=== PATIENT | female | born 1970 | race Two or more races ===

== ENCOUNTER 2016-08-04 10:50 | Emergency (ER) | payer MEDICAID ==
[~2016-08-04] VITALS: Ht 152.4 cm; Wt 54.4 kg
[~2016-08-04 10:50] MED LIST: LEVO750T21 PO; OMEP20CA10 PO; ONDA4TAB5 PO
[2016-08-04 11:05] VITALS: BP 114/68
[2016-08-04 11:39] LABS: KETONES,URINE Negative (NEGATIVE); LEUKOCYTE ESTERASE ,URINE Trace (NEGATIVE)
[2016-08-04 11:41] LABS: ADD UA MICROSCOPIC YES
[2016-08-04 11:42] LABS: PREGNANCY TEST URINE QUAL NEGATIVE (NEGATIVE)
[2016-08-04 11:52] LABS: ADD URINE CULTURE NO; WBC,URINE 0-2 /HPF (0-3)
== END 2016-08-04 12:01 | disposition home or self-care (01) ==
LOC: ER 10:54
DX: N39.0 Urinary tract infection, site not specified (principal)
CPT/HCPCS: 81001; 84703; 87086; 99284; A4606; Z7610; 81000-TC

== ENCOUNTER 2017-02-22 08:56 | Emergency (ER) | payer MEDICAID ==
[~2017-02-22] VITALS: Ht 149.9 cm; Wt 47.6 kg
--- NOTE | 2017-02-22 10:00 | NUR ---
EYE ASSESSMENT- R EYE 20/20, L EYE- 20/15
[2017-02-22 10:19] LABS: BASOPHILS # (AUTO) 0.1 /CMM (0.0-0.2); BASOPHILS % (AUTO) 1.2 % (0.0-2.0); EOSINOPHILS # (AUTO) 0.1 /CMM (0.0-0.7); HEMATOCRIT 42 % (33-45); HEMOGLOBIN 14.1 g/dL (11.5-14.8); LYMPHOCYTES # (AUTO) 1.8 /CMM (0.8-4.8); LYMPHOCYTES % (AUTO) 30.4 % (20.0-44.0); MEAN CORPUSCULAR HEMOGLOBIN 31 PG (26.0-33.0); MEAN CORPUSCULAR HGB CONC 34 g/dl (31.0-36.0); MEAN CORPUSCULAR VOLUME 90 fL (82-100); MONOCYTES # (AUTO) 0.3 /CMM (0.1-1.30); MONOCYTES % (AUTO) 5.3 % (2.0-12.0); NEUTROPHILS # (AUTO) 3.8 /CMM (1.8-8.9); NEUTROPHILS % (AUTO) 61.1 % (43.0-81.0); PLATELET COUNT (AUTO) 240 /CMM (150-450); RDW COEFFICIENT OF VARIATION 12.1 (11.5-15.0); RED BLOOD CELL COUNT(AUTO) 4.62 MIL/uL (4.0-5.2); WHITE BLOOD COUNT (AUTO) 6.1 K/uL (4.3-11.0)
--- NOTE | 2017-02-22 10:19 | NUR ---
PT REFUSED MEDS. MD AWARE. PER MD CONTINUE WITH JUST BLOOD DRAW, NO IV.
[2017-02-22 10:28] LABS: CALCIUM, SERUM 9.1 mg/dL (8.5-10.1); CREATININE 0.6 mg/dL (0.6-1.3); POTASSIUM 4.1 mmol/L (3.5-5.1)
[2017-02-22 10:33] LABS: INR 0.96 (0.87-1.13)
[2017-02-22 10:34] LABS: ALBUMIN 4.1 g/dL (3.4-5.0); BILIRUBIN,TOTAL 0.5 mg/dL (0.2-1.0); TOTAL PROTEIN, SERUM 7.9 g/dL (6.4-8.2)
--- NOTE | 2017-02-22 13:01 | NUR ---
Patient discharged to home in stable condition. Written and verbal after care instructions given. Patient verbalizes understanding of instruction.
--- NOTE | 2017-02-22 13:01 | NUR ---
Note undone in EDM - 02/22/17 at 1302 by ELISEOON IV removed. Catheter intact and site benign. Pressure and 4x4 applied to site. No bleeding noted.
[2017-02-22 13:03] VITALS: BP 122/78
== END 2017-02-22 13:03 | disposition home or self-care (01) ==
LOC: ER 08:59
DX: R51 Headache (principal); H11.31 Conjunctival hemorrhage, right eye; Z90.710 Acquired absence of both cervix and uterus; Z90.89 Acquired absence of other organs
CPT/HCPCS: 36415; 70450-TC; 80053-TC; 85025-TC; 85610-TC; 85652-TC; 85730-TC; A4606; J2270; J2405; Z7610

== ENCOUNTER 2018-02-09 07:29 | Emergency (ER) | payer MEDICAID ==
[~2018-02-09] VITALS: Ht 149.9 cm; Wt 47.6 kg
--- NOTE | 2018-02-09 07:30 | NUR ---
PRESENTS TO ER C/O DYSURIA AND HEMATURIA SINCE LAST NIGHT. PATIENT IS A/OX 4, BREATHING EVEN AND UNLABORED. NO SOB, NAD, VITALS STABLE. SAFETY AND COMFORT MEASURES IN PLACE. AWAITING MD ORDERS.
--- NOTE | 2018-02-09 07:40 | NUR ---
URINE OBTAINED AND SENT TO LAB.
[2018-02-09 08:01] LABS: APPEARANCE,URINE CLOUDY (CLEAR); BILIRUBIN,URINE NEGATIVE (NEGATIVE); BLOOD, URINE 3+ Ery/uL (NEGATIVE); COLOR,URINE YELLOW (YELLOW); KETONES,URINE NEGATIVE (NEGATIVE); LEUKOCYTE ESTERASE ,URINE 2+ (NEGATIVE); NITRITE, URINE NEGATIVE (NEGATIVE); PROTEIN,URINE TRACE mg/dl (NEGATIVE); UGLUCOSE NEGATIVE (NEGATIVE); UROBILINOGEN,URINE 0.2 EU/dL (0.2)
[2018-02-09 08:09] LABS: BACTERIA,URINE Few /HPF (None Seen); SQUAMOUS EPITHELIAL CELL,UR Few /HPF (None Seen)
[2018-02-09 08:10] LABS: RBC,URINE 51-80 /HPF (0-2); WBC,URINE 51-80 /HPF (0-3)
[2018-02-09 08:20] VITALS: BP 124/76
--- NOTE | 2018-02-09 08:21 | NUR ---
Patient discharged to home in stable condition. Written and verbal after care instructions given. Patient verbalizes understanding of instruction.
== END 2018-02-09 08:21 | disposition home or self-care (01) ==
LOC: ER 07:31
DX: N39.0 Urinary tract infection, site not specified (principal); Z90.710 Acquired absence of both cervix and uterus; Z87.440 Personal history of urinary (tract) infections; Z90.89 Acquired absence of other organs
CPT/HCPCS: 81001; 84703; 87077; 87086; 87186; 99284; A4606; Z7610; 81000-TC

== ENCOUNTER 2018-10-16 11:00 | Emergency (ER) ==
[~2018-10-16] VITALS: Ht 149.9 cm; Wt 54.9 kg
[~2018-10-16 11:00] MED LIST changes: -OMEP20CA10 PO; +OMEP20CA11 PO
[2018-10-16 11:05] VITALS: BP 94/61
[2018-10-16] MEDS ORDERED: FLUORESCEIN SODIUM OPHTH 1 EA STRIP ONE (11:18)
[2018-10-16] MEDS ORDERED: TETRACAINE HCL/PF 0.5% UD 2 ML BOTTLE ONE (11:18)
[2018-10-16] MEDS ORDERED: FLUORESCEIN SODIUM OPHTH 1 EA STRIP OP ONE (11:30)
[2018-10-16] MEDS ORDERED: TETRACAINE HCL/PF 0.5% UD 2 ML BOTTLE RIGHTEYE ONE (11:30)
== END 2018-10-16 11:48 | disposition home or self-care (01) ==
LOC: ER 11:00
DX: H11.31 Conjunctival hemorrhage, right eye (principal); Z90.710 Acquired absence of both cervix and uterus; Z90.89 Acquired absence of other organs; Z60.2 Problems related to living alone; Z79.899 Other long term (current) drug therapy; Z87.440 Personal history of urinary (tract) infections

== ENCOUNTER 2018-12-18 12:34 | Emergency (ER) | payer MEDICAID, OTHER ==
[~2018-12-18] VITALS: Ht 152.4 cm; Wt 55.8 kg
[2018-12-18 12:52] VITALS: BP 114/70
== END 2018-12-18 15:44 | disposition home or self-care (01) ==
LOC: ER 12:35
DX: H11.31 Conjunctival hemorrhage, right eye (principal); R51 Headache; Z90.710 Acquired absence of both cervix and uterus; Z87.440 Personal history of urinary (tract) infections; Z90.89 Acquired absence of other organs; Z60.2 Problems related to living alone
CPT/HCPCS: 70450-TC

== ENCOUNTER 2019-06-29 20:04 | Emergency (ER) | payer MEDICAID, OTHER ==
[~2019-06-29] VITALS: Ht 149.9 cm; Wt 54.4 kg
[~2019-06-29 20:04] MED LIST changes: -OMEP20CA11 PO; +OMEP20CA15 PO
[2019-06-29 20:24] VITALS: BP 101/51
[2019-06-29] MEDS ORDERED: IBUPROFEN 400 MG TABLET PO STA (22:59)
[2019-06-29] MEDS ORDERED: BENZONATATE 100 MG CAPSULE PO STA (22:59)
[2019-06-29] MEDS ORDERED: GUAIFENESIN LA 600 MG TABLET.SA PO STA (22:59)
[2019-06-29] MEDS ORDERED: GUAIFENESIN LA 600 MG TABLET.SA PO ONE (23:19)
[2019-06-29] MEDS ORDERED: IBUPROFEN 400 MG TABLET ONE (23:19)
[2019-06-29] MEDS ORDERED: BENZONATATE 100 MG CAPSULE PO ONE (23:24)
== END 2019-06-30 01:17 | disposition home or self-care (01) ==
LOC: ER 20:05
DX: B34.8 Other viral infections of unspecified site (principal); Z90.710 Acquired absence of both cervix and uterus; Z60.2 Problems related to living alone; Z79.899 Other long term (current) drug therapy
CPT/HCPCS: 71045-TC

== ENCOUNTER 2022-11-11 13:26 | Emergency (ER) | payer MEDICAID ==
[~2022-11-11] VITALS: Ht 149.9 cm; Wt 48.1 kg
[~2022-11-11 13:26] MED LIST changes: +IBUP-1955 PO
[2022-11-11 14:44] LABS: BASOPHILS % (AUTO) 0.2 % (0.0-2.0); EOSINOPHILS % (AUTO) 0.2 % (0.0-6.0); HEMATOCRIT 40 % (33-45); HEMOGLOBIN 13.4 g/dL (11.5-14.8); LYMPHOCYTES # (AUTO) 0.6 K/uL (0.8-4.8); LYMPHOCYTES % (AUTO) 8.2 % (20.0-44.0); MEAN CORPUSCULAR HGB CONC 34 g/dl (31.0-36.0); MEAN CORPUSCULAR VOLUME 91 fL (82-100); MONOCYTES # (AUTO) 0.5 K/uL (0.1-1.30); MONOCYTES % (AUTO) 6.8 % (2.0-12.0); NEUTROPHILS # (AUTO) 6.4 K/uL (1.8-8.9); NEUTROPHILS % (AUTO) 84.6 % (43.0-81.0); PLATELET COUNT (AUTO) 185 K/uL (150-450); RED BLOOD CELL COUNT(AUTO) 4.38 MIL/uL (4.0-5.2); WHITE BLOOD COUNT (AUTO) 7.5 K/uL (4.3-11.0)
--- NOTE | 2022-11-11 14:45 | NUR ---
EMPLOYMENT ADVISOR AT BED SIDE
--- NOTE | 2022-11-11 14:50 | NUR ---
URINE SAMPLE OBTAINED SENT TO LAB
[2022-11-11 14:55] LABS: CALCIUM, SERUM 8.6 mg/dL (8.5-10.1); CREATININE 0.6 mg/dL (0.6-1.3); POTASSIUM 3.6 mmol/L (3.5-5.1)
[2022-11-11] MEDS ORDERED: DICYCLOMINE HCL INJ 20 MG/2 ML AMPUL IM ONE ×2 (14:55→15:00)
[2022-11-11] MEDS ORDERED: KETOROLAC TROMETHAMINE 15 MG/ML VIAL ONE (14:55)
[2022-11-11] MEDS ORDERED: FAMOTIDINE/PF INJ 20 MG/2 ML VIAL IV ONE ×2 (14:56→15:00)
[2022-11-11] MEDS ORDERED: KETOROLAC TROMETHAMINE INJ 30 MG/ML VIAL IV ONE (15:00)
[2022-11-11] MEDS ORDERED: IV NS 0.9% 1,000 ML IV ONE (15:00)
--- NOTE | 2022-11-11 15:00 | NUR ---
IV LINE LEFT AC 20 G .
[2022-11-11 15:01] LABS: ALBUMIN 3.4 g/dL (3.4-5.0); BILIRUBIN,DIRECT 0.2 mg/dL (0.0-0.2); BILIRUBIN,TOTAL 0.4 mg/dL (0.2-1.0)
[2022-11-11 15:24] LABS: BILIRUBIN,URINE NEGATIVE (NEGATIVE); COLOR,URINE YELLOW (YELLOW); LEUKOCYTE ESTERASE ,URINE NEGATIVE (NEGATIVE); NITRITE, URINE NEGATIVE (NEGATIVE); PROTEIN,URINE TRACE mg/dl (NEGATIVE); UGLUCOSE NEGATIVE (NEGATIVE); UROBILINOGEN,URINE 0.2 EU/dL (0.2)
[2022-11-11 15:30] LABS: BACTERIA,URINE None seen /HPF (None Seen); RBC,URINE 21-50 /HPF (0-2); WBC,URINE 0-2 /HPF (0-3)
[2022-11-11] MEDS ORDERED: FAMO20TA8 PO (17:24)
[2022-11-11] MEDS ORDERED: ONDA4TAB5 PO (17:24)
[2022-11-11] MEDS ORDERED: DICY10CA37 PO (17:24)
--- NOTE | 2022-11-11 18:14 | NUR ---
IV removed. Catheter intact and site benign. Pressure and 4x4 applied to site. No bleeding noted.
--- NOTE | 2022-11-11 18:14 | NUR ---
Patient discharged to home in stable condition. Written and verbal after care instructions given. Patient verbalizes understanding of instruction.
[2022-11-11 18:15] VITALS: BP 98/61
== END 2022-11-11 18:16 | disposition home or self-care (01) ==
LOC: ER 13:35
DX: B19.9 Unspecified viral hepatitis without hepatic coma (principal); R10.13 Epigastric pain; Z90.49 Acquired absence of other specified parts of digestive tract; Z60.2 Problems related to living alone; Z79.899 Other long term (current) drug therapy
CPT/HCPCS: 99285; 96374; 76705; 96361; 96375; 80074; 85025; 80048; 83690; 80076; 85610; 81001; 36415; 96372; J3490; J7030; J0500; J1885